=== PATIENT | male | born 1970 | race Caucasian/White ===

== ENCOUNTER 2016-12-29 11:14 | Emergency (ER) | payer OTHER ==
--- NOTE | 2016-12-29 11:23 | ED Physician Documentation ---
Chest Pain - HISTORIAN Historian: patient - HPI Chief Complaint: Chest Pain Onset: hours (08:30) Timing: sudden onset, still present, better Duration: constant Last known Well Date: 12/29/16 Last Known Well Time: 08:30 Last known Well Code/Unknown Code: Known Context: activity (while at work) Chest Pain Radiation: no radiation Chest Pain Signs/Symptoms: denies: nausea, vomiting, diaphoresis, dyspnea Relieved By: nothing. 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 No precipitating factor noted. Has donita constant. Dull achy pain. Patient denies any modifying factors noted. Has had similar pain for several years, usually precipitated by fever. Usually lasts for several hours. No SOB diaphoresis noted. No hx of HTN, hypercholesterolemia, DM. Father with CAD in mid 60s.) - ROS CONST: none. denies: fever, chills MS/LYMPH: none GI/: none. denies: problems urinating, vomiting, nausea, diarrhea SKIN/ENDO: none - PAST HX AK risk factors: no pertinent history. denies: hypertension, diabetes Type 2, hyperlipidemia, cardiac disease DVT/PE Risk Factors: none TAD/AAA risk factors: none GI disease: denies: GERD, peptic ulcer, GI bleed Lung disease: none Allergies/Adverse Reactions: Allergies Allergy/AdvReac Type Severity Reaction Status Date / Time No Known Allergies Allergy Verified 12/29/16 11:26 Home Medications: Ambulatory Orders Medication Instructions Recorded NK [NK] 12/29/16 - SOCIAL HX Smoking History: non-smoker Alcohol Use: occasionally Drug Use: none - FAMILY HX Family HX: CAD over 55 - VITAL SIGNS Vital Signs: Vital Signs Temp Pulse Resp BP Pulse Ox 132/68 03/26/14 20:22 - REVIEWED ASSESSMENTS Nursing Assessment Reviewed: Yes Vitals Reviewed: Yes Procedures - Central Line Progress: 11:43 Patient states that GI cocktail helped a lot, most of the pain is gone. Chest Pain Physical Exam - EXAM General Appearance: no acute distress Respiratory: no resp. distress, chest non-tender, nml breath sounds. No: resp.distress, wheezes, rales, rhonchi CVS: reg. rate & rhythm, no murmur, no gallop Abdomen: soft, no organomegaly, normal bowel sounds, no distension, tenderness ( epigastric). No: distended, guarding Skin: warm/dry, normal color Extremities: non-tender, no edema Neuro: oriented X3, CN's nml as tested Discharge Clincal Impression: Atypical chest pain Referrals: Isabel Jones MD [Primary Care Provider] - 2 Days Additional Instructions: Start taking some omeprazole 20mg once a day. I would advised for you to see your primary care provider if you continue to have difficulties. Home Medications: Ambulatory Orders NK [NK] 12/29/16 Condition: Stable Disposition: 01 HOME, SELF-CARE Decision to Admit: NO Date of Decison to Admit: 12/29/16 Decision Time: 12:16
[2016-12-29] MEDS: ASPIRIN 81 MG CHEW TAB PO ONE (11:30)
[2016-12-29] MEDS ORDERED: MAGNESIUM HYDROXIDE/AL HYDROX 30 ML UDC PO ONE (11:33)
[2016-12-29] MEDS ORDERED: Lidocaine 2%Visc 15ml 20 MG/ML UDC ONE (11:33)
[2016-12-29] MEDS: MAG HYDROX/AL HYDROX/SIMETH 30 ML, Lidocaine 2%Visc 15ml 20 MG, PHENobarb/HYOSCY/ATROPI... PO ONE ×3 (11:45)
[2016-12-29 11:55] LABS: EOSINOPHILS % 1.7 % (0.0-6.8); MEAN CORPUSCULAR HEMOGLOBIN 28.1 pg (28.0-34.0); MEAN CORPUSCULAR VOLUME 83.5 fl (80.0-100.0); MONOCYTES % 6.3 % (0.0-11.0); NEUTROPHILS # 9.6 # k/uL (1.4-7.7)
[2016-12-29 11:59] LABS: eGFR (African) > 60; eGFR (Non-African) > 60
[2016-12-29 12:29] VITALS: BP 106/73
--- NOTE | 2016-12-29 15:01 | Diagnostic Imaging Report ---
JAY DONALD [facility] [address] [facility] [address] [address] Report Submission Date: Dec 29, 2016 12:02:36 PM CDT Patient Study Name: LAURA PINEDA Date: Dec 29, 2016 11:32:20 AM CDT Modality Type: CR Gender: M Description: CHEST : 74 Institution: [facility] Physician: JAY DONALD Chest -two views CLINICAL HISTORY: Mediastinal chest pain for a few hr. FINDINGS: Examination of the chest in PA and lateral views with no prior film for comparison demonstrates lungs to be hypoventilated but clear. Cardiovascular and mediastinal silhouettes are within normal limits. Monitor leads superimpose the chest. IMPRESSION: Hypoventilation. No active disease. Electronically signed on Dec 29, 2016 12:02:36 PM CDT by: Armand SLATER
== END 2016-12-29 12:28 | disposition home or self-care (01) ==
LOC: ED 11:14
DX: R07.89 Other chest pain (principal)
CPT/HCPCS: 71020; 80053; 84484; 85025; 93005; A9270; 99283; S1016